=== PATIENT | female | born 1950 | race Hispanic/Latino ===

== ENCOUNTER 2017-05-27 18:43 | Emergency (ER) | payer BC ==
[2017-05-27 19:13] VITALS: RESP 18; BMI 24.9
[2017-05-27] MEDS ORDERED: Morphine 2 mg/ml ISec IVP STA (19:16)
[2017-05-27] MEDS ORDERED: Morphine 4 mg/ml ISec IVP STA (19:23)
--- NOTE | 2017-05-27 19:45 | ED PDOC ---
Arrival/HPI <Ray Hayes - Last Filed: 05/27/17 22:56> - General Historian: Patient <Bran Vargas - Last Filed: 05/28/17 07:31> - General Chief Complaint: Trauma - History of Present Illness Narrative History of Present Illness (Text): 05/27/17 19:39 Pt is a 66 yo with PMH of HTN, interstitial cystitis, SCC, BCC presents to ED with left knee pain. Pt states that she was mopping the floor earlier, slipped, and hit knee direcly on floor. Patient said that she heard a pop when the knee hit the floor. Pt denied any syncopal, near-syncopal episode, or dizziness prior to fall. Pt states that pain localized to left knee with increased swelling. Pt denies any loss in sensation in left lower extremity. Pt denied CP , SOB, n/v/d, abdominal pain, fever, chills, MARTINEZ, or dizziness. PMD: Darling (Bran Vargas) Past Medical History - Provider Review Nursing Documentation Reviewed: Yes - Cardiac Hx Hypertension: Yes - Genitourinary/Gynecological Other/Comment: interstitial cystitis - Psychiatric Hx Substance Use: No - Surgical History Other/Comment: R shoulder rotator cuff. R foot sx - Anesthesia Hx Anesthesia: Yes Hx Anesthesia Reactions: No Hx Malignant Hyperthermia: No <Bran Vargas - Last Filed: 05/28/17 07:31> Family/Social History - Physician Review Nursing Documentation Reviewed: Yes Family/Social History: Other (non-contributory) Smoking Status: Never Smoked Hx Alcohol Use: No Hx Substance Use: No <Bran Vargas - Last Filed: 05/28/17 07:31> Allergies/Home Meds <Ray Hayes - Last Filed: 05/27/17 22:56> <Bran Vargas - Last Filed: 05/28/17 07:31> Allergies/Adverse Reactions: Allergies shellfish derived Allergy (Verified 05/27/17 18:49) ANAPHYLAXIS Review of Systems - Review of Systems Constitutional: Normal Eyes: Normal ENT: Normal Respiratory: Normal Cardiovascular: Normal Gastrointestinal: Normal Genitourinary Female: Normal Musculoskeletal: Arthralgias (left knee) Skin: Normal Neurological: Normal Endocrine: Normal Hemo/Lymphatic: Normal Psychiatric: Normal <Bran Vargas - Last Filed: 05/28/17 07:31> Physical Exam Vital Signs Reviewed: Yes Temperature: Afebrile Blood Pressure: Hypertensive Pulse: Regular Respiratory Rate: Normal Appearance: Positive for: Well-Appearing Pain Distress: Severe Mental Status: Positive for: Alert and Oriented X 3 - Systems Exam Head: Present: Atraumatic, Normocephalic Extroacular Muscles: Present: EOMI Mouth: Present: Moist Mucous Membranes Neck: Present: Normal Range of Motion Respiratory/Chest: Present: Clear to Auscultation. No: Respiratory Distress, Wheezes, Rales, Rhonchi Cardiovascular: Present: Regular Rate and Rhythm, Normal S1, S2. No: Murmurs, Rub, Gallop Abdomen: No: Tenderness, Distention, Peritoneal Signs, Rebound, Guarding Back: Present: Normal Inspection Upper Extremity: Present: Normal Inspection Lower Extremity: Present: Neurovascularly Intact, Other (Left knee TTP, swelling , ROM limited 2/2 pain, patella displaced laterally) Neurological: Present: GCS=15 Skin: Present: Warm, Dry, Normal Color Psychiatric: Present: Alert, Oriented x 3 <Bran Vargas - Last Filed: 05/28/17 07:31> Vital Signs Temp Pulse Resp BP Pulse Ox 05/27/17 23:47 78 18 132/76 98 05/27/17 21:25 76 18 158/90 H 100 05/27/17 20:56 98.7 F 94 H 18 176/99 H 42 L 05/27/17 18:55 98.2 F 82 18 169/109 H 99 Medical Decision Making <Ray Hayes - Last Filed: 05/27/17 22:56> <Bran Vargas - Last Filed: 05/28/17 07:31> ED Course and Treatment: 05/27/17 22:54 CT Head Without Intravenous Contrast EXAM DATE/TIME: 05/27/2017 9:08 PM Dictated and Authenticated by: Olena eHctor MD 05/27/2017 10:53 PM Eastern Time ([place] & [place]) CLINICAL HISTORY: 66 years old, female; Injury or trauma; Fall; Initial encounter; Abrasion; Forehead; Additional info: Head trauma TECHNIQUE: Axial computed tomography images of the head/brain without intravenous contrast. All CT scans at this facility use one or more dose reduction techniques, viz.: automated exposure control; ma/kV adjustment per patient size (including targeted exams where dose is matched to indication; i.e. head); or iterative reconstruction technique. Coronal and sagittal reformatted images were created and reviewed. COMPARISON: There are no prior studies for comparison. FINDINGS: Brain: Ventricles are normal in size and configuration. There is no midline shift. There are no intraaxial or extra-axial mass lesions or areas of hemorrhage. There are no abnormal fluid collections. Marin-white differentiation is maintained. Ventricles: See above. Bones: Cranial vault is intact. Soft tissues: unremarkable Sinuses: There is no acute sinusitis. Ears and mastoids: Middle ears and mastoids are unremarkable. There is streak artifact from an earring Orbits: Orbital contents are unremarkable. IMPRESSION: No acute intracranial abnormality 05/27/17 22:56 Patient patella looks better positioned on xray however it is still high riding and quadraceps activation causes much pain but she is not able to lift the leg off the bed. Will have her follow with Orthopedics within next 48 hours. Knee Imobilizer, Crutches and Pain Meds. Patient completely recovered from conscious sedation and stable for DC home- Family with her as well. (Ray Hayes) 05/27/17 19:48 Assessment: 66 yo F presents to ED with left knee pain 2/2 mechanical fall. Plan: - CBC - CMP - Coags - EKG - Left knee xray 05/27/17 20:36 Left knee xray shows superolateral displacement of the patella with possible lateral displacement of the tibia. Follow up with official radiologist read. EKG showed NSR, rate 77. Discussed results with patient. Explained to patient that patella needed to be reduced. Patient overly anxious about procedure. Sedation and pain medication were offered. Patient accepted and agreed to manual reduction of left patellar dislocation. 05/27/17 21:10 Patient given IV etomidate for sedation. Successful manual reduction of the left patella. Patient states that pain is minimal s/p reduction. Left knee x- ray ordered. Patient admits to hitting her head after mechanical fall. CT head ordered. (Bran Vargas) - Lab Interpretations Lab Results: 05/27/17 19:45 05/27/17 19:45 Lab Results 05/27/17 19:45: Sodium 136, Potassium 4.1, Chloride 98, Carbon Dioxide 28, Anion Gap 15, BUN 15, Creatinine 0.9, Est GFR ( Amer) > 60, Est GFR (Non- Af Amer) > 60, Random Glucose 102, Calcium 10.5, Total Bilirubin 0.4, AST 29, ALT 23, Alkaline Phosphatase 72, Total Protein 7.8, Albumin 4.8, Globulin 3.0, Albumin/Globulin Ratio 1.6 05/27/17 19:45: PT 10.3, INR 0.91 L, APTT 25.2 05/27/17 19:45: WBC 6.5, RBC 4.21, Hgb 12.7, Hct 38.8, MCV 92.2, MCH 30.2, MCHC 32.7, RDW 12.3, Plt Count 213, MPV 10.3, Gran % 65.3, Lymph % (Auto) 23.7, [place] % (Auto) 8.8 H, Eos % (Auto) 1.7, Baso % (Auto) 0.5, Gran # 4.25, Lymph # (Auto ) 1.5, [place] # (Auto) 0.6, Eos # (Auto) 0.1, Baso # (Auto) 0.03 - RAD Interpretation Radiology Orders: 05/27/17 19:23 KNEE LEFT 2 VIEWS (AP & LAT) [RAD] Stat 05/27/17 21:08 HEAD W/O CONTRAST [CT] Stat KNEE LEFT 2 VIEWS (AP & LAT) [RAD] Stat - Medication Orders Current Medication Orders: Discontinued Medications Etomidate (Amidate) 14 mg IV STAT STA Stop: 05/27/17 20:32 Last Admin: 05/27/17 20:56 Dose: 14 mg eMAR Start Stop Document 05/27/17 20:56 EQ (Rec: 05/27/17 22:05 EQ [id number]) Intravenous Solution Start Date 05/27/17 Start Time 20:56 Morphine Sulfate (Morphine) 4 mg IVP STAT STA Stop: 05/27/17 19:24 Last Admin: 05/27/17 19:36 Dose: 4 mg MAR Pain Assessment Document 05/27/17 19:36 EQ (Rec: 05/27/17 19:36 EQ [id number]) Pain Reassessment Is this a pain reassessment? No Sleep Is patient sleeping during reassessment? No Presence of Pain Presence of Pain Yes Pain Scale Used Pain Scale Used Numeric IVP Administration Document 05/27/17 19:36 EQ (Rec: 05/27/17 19:36 EQ [id number]) Charges for Administration # of IVP Administrations 1 Morphine Sulfate (Morphine) 4 mg IM STAT STA Stop: 05/27/17 20:32 Last Admin: 05/27/17 22:06 Dose: Ondansetron HCl (Zofran Tab) 4 mg PO STAT STA Stop: 05/27/17 19:24 Last Admin: 05/27/17 19:36 Dose: 4 mg Ondansetron HCl (Zofran Inj) 4 mg IVP STAT STA Stop: 05/27/17 20:32 Last Admin: 05/27/17 22:06 Dose: Ondansetron HCl (Zofran Odt) 8 mg PO STAT STA Stop: 05/27/17 23:18 Last Admin: 05/27/17 23:38 Dose: 8 mg Oxycodone/Acetaminophen (Percocet 5/325 Mg Tab) 2 tab PO STAT STA Stop: 05/27/17 23:18 Last Admin: 05/27/17 23:37 Dose: 2 tab MAR Pain Assessment Document 05/27/17 23:37 GMD (Rec: 05/27/17 23:38 GMD [id number]) Pain Reassessment Is this a pain reassessment? No Presence of Pain Presence of Pain Yes Disposition/Present on Arrival - Present on Arrival Any Indicators Present on Arrival: Yes - Disposition Have Diagnosis and Disposition been Completed?: Yes Disposition Time: 23:07 Patient Plan: Discharge <Ray Hayes - Last Filed: 05/27/17 22:56> - Present on Arrival History of DVT/PE: Yes History of Uncontrolled Diabetes: No Urinary Catheter: No History of Decub. Ulcer: No History Surgical Site Infection Following: None <Bran Vargas - Last Filed: 05/28/17 07:31> - Disposition Diagnosis: Fall, Patellar dislocation, Patellar tendon strain, Injury of quadriceps tendon , Closed head injury Disposition: HOME/ ROUTINE Condition: GOOD Discharge Instructions (ExitCare): Closed Head Injury, Dislocated Kneecap, Dislocated Kneecap (DC) Additional Instructions: Mrs Mckinley- Your kneecap was dislocated and you tore your patellar/quadraceps tendon. You have to see orthopedics within [address] Vences is natural remedy consultant. Call his office this morning when it opens. Percocet is for bad pain. It will upset your stomach. Zofran ODT is for your upset stomach. You may need surgery on that tendon. Wear the immobilizer at all times except to bathe. Use the crutches. Best- Dr. Ray Hayes Prescriptions: Ondansetron [Zofran Odt] 8 mg PO TID #30 tab.rapdis oxyCODONE/Acetaminophen [Percocet 5/325 mg Tab] 1 ea PO QID #20 tab Referrals: Rodrigo Hastings MD [Primary Care Provider] - Follow up with primary Leandro Hills DO [[facility]] - Follow up with primary Juwan Vences MD [Staff Provider] - Follow up with primary Forms: [employer] (Somali)
[2017-05-27 19:52] LABS: BASO # 0.03 K/mm3 (0.0-2.0); BASO % 0.5 % (0.0-3.0); EOS # 0.1 (0.0-0.7); EOS % 1.7 % (1.5-5.0); GRAN # 4.25 (1.4-6.5); GRAN % 65.3 % (50.0-68.0); HEMOGLOBIN 12.7 g/dL (12.0-16.0); LYMPH # 1.5 (1.2-3.4); LYMPH % 23.7 % (22.0-35.0); MEAN CELL VOLUME 92.2 fl (80.0-105.0); MEAN CORPUSCULAR HEMOGLOBIN 30.2 pg (25.0-35.0); MEAN CORPUSCULAR HGB CONC 32.7 g/dl (31.0-37.0); MEAN PLATELET VOLUME 10.3 fl (7.0-11.0); MONO # 0.6 (0.1-0.6); MONO % 8.8 % (1.0-6.0); RBC 4.21 10^6/uL (3.5-6.1); RED CELL DISTRIBUTION WIDTH 12.3 % (11.5-14.5); WHITE BLOOD COUNT 6.5 10^3/ul (4.5-11.0)
[2017-05-27 20:04] LABS: ALB/GLOB RATIO 1.6 (1.1-1.8); ALBUMIN 4.8 g/dL (3.0-4.8); ALT/SGPT 23 U/L (7-56); AST/SGOT 29 U/L (14-36); BLOOD UREA NITROGEN 15 mg/dL (7-21); CALCIUM 10.5 mg/dL (8.4-10.5); GFR AFRICAN-AMERICAN > 60; GFR NON-AFRICAN AMERICAN > 60
[2017-05-27 20:16] LABS: INR 0.91 (0.93-1.08); PARTIAL THROMBOPLASTIN TIME 25.2 Seconds (25.1-36.5); PROTHROMBIN TIME 10.3 SECONDS (9.4-12.5)
[2017-05-27] MEDS ORDERED: Morphine 4 mg/ml ISec IM STA (20:31)
[2017-05-27] MEDS ORDERED: Etomidate 20 mg/10ml Inj IV STA (20:31)
[2017-05-27 22:31] VITALS: TEMP 98.7
--- NOTE | 2017-05-27 22:53 | CT ---
EXAM: CT Head Without Intravenous Contrast EXAM DATE/TIME: 05/27/2017 9:08 PM CLINICAL HISTORY: 66 years old, female; Injury or trauma; Fall; Initial encounter; Abrasion; Forehead; Additional info: Head trauma TECHNIQUE: Axial computed tomography images of the head/brain without intravenous contrast. All CT scans at this facility use one or more dose reduction techniques, viz.: automated exposure control; ma/kV adjustment per patient size (including targeted exams where dose is matched to indication; i.e. head); or iterative reconstruction technique. Coronal and sagittal reformatted images were created and reviewed. COMPARISON: There are no prior studies for comparison. FINDINGS: Brain: Ventricles are normal in size and configuration. There is no midline shift. There are no intra-axial or extra-axial mass lesions or areas of hemorrhage. There are no abnormal fluid collections. Marin-white differentiation is maintained. Ventricles: See above. Bones: Cranial vault is intact. Soft tissues: unremarkable Sinuses: There is no acute sinusitis. Ears and mastoids: Middle ears and mastoids are unremarkable. There is streak artifact from an earring Orbits: Orbital contents are unremarkable. IMPRESSION: No acute intracranial abnormality
[2017-05-27] MEDS ORDERED: Oxycodone/Acetaminophen 5/325 mg Tab PO STA (23:17)
[2017-05-27 23:47] VITALS: BP 132/76; PULSE 78; O2SAT 98
--- NOTE | 2017-05-28 08:25 | RAD ---
PROCEDURE: Left Knee Radiographs. HISTORY: Pain. COMPARISON: None. FINDINGS: BONES: Normal. No fracture. JOINTS: Normal. No osteoarthritis. JOINT EFFUSION: None. OTHER FINDINGS: None. IMPRESSION: Normal radiographs of the left knee.
--- NOTE | 2017-05-28 09:06 | RAD ---
PROCEDURE: Left Knee Radiographs. HISTORY: Pain. COMPARISON: None. FINDINGS: BONES: Normal. No fracture. JOINTS: There is lateral dislocation of the patella. No evidence of fracture JOINT EFFUSION: None. OTHER FINDINGS: None. IMPRESSION: Lateral dislocation of the patella
[2017-05-28] MEDS ORDERED: Lidocaine 1% Inj (20ml) ONE (10:35)
--- NOTE | 2017-05-28 21:19 | CARD ---
APPROVED REPORT EKG Measurement Heart [id number] <Conclusion> Normal sinus rhythm Normal ECG
== END 2017-05-27 23:47 | disposition home or self-care (01) ==
LOC: ED 18:43
DX: S83.005A Unspecified dislocation of left patella, initial encounter (principal); S09.90XA Unspecified injury of head, initial encounter; S76.112A Strain of left quadriceps muscle, fascia and tendon, initial encounter; S76.102A Unspecified injury of left quadriceps muscle, fascia and tendon, initial encounter; W01.0XXA Fall on same level from slipping, tripping and stumbling without subsequent striking against object, initial encounter; Y93.E5 Activity, floor mopping and cleaning; I10 Essential (primary) hypertension
CPT/HCPCS: 27560; 70450; 73560; 80053; 85025; 85610; 85730; 93005; 96374; 99285; J2270